=== PATIENT | female | born 1940 | race Caucasian/White ===

== ENCOUNTER 2022-02-03 17:24 | Inpatient (IN) ==
[2022-02-03] MEDS ORDERED: *HR* OxyCODONE Immed Rel 5 MG TABLET PO PRN (20:51)
[2022-02-03] MEDS ORDERED: Ondansetron ODT 4 MG TAB.RAPDIS SL PRN (20:51)
[2022-02-03] MEDS ORDERED: Acetaminophen 325 MG TABLET PO PRN (20:51)
[2022-02-03] MEDS ORDERED: Perflutren Lipid Microsphere 1.3 ML in 0.9 % Sodium Chloride 8.7 ML IVP PRN (20:51)
[2022-02-03] MEDS ORDERED: Naloxone 0.4 MG/ML INJ IVP PRN (20:51)
[2022-02-03] MEDS ORDERED: Gadolinium Contrast Agent (WT Based) IV PRN (20:51)
[2022-02-03] MEDS ORDERED: Melatonin 3 MG TABLET PO PRN (20:51)
[2022-02-03] MEDS: 0.9 % Sodium Chloride 1,000 ML IVC SCH (22:33)
[2022-02-04 00:50] LABS: INR 1.1; Prothrombin Time 11.9 Seconds (9.4-12.1)
[2022-02-04 01:08] LABS: Alanine Aminotransferase 10 Units/L (7-52); Albumin 3.8 g/dL (3.5-5.7); Albumin/Globulin Ratio 1.9 (1.1-2.2); Alkaline Phosphatase 54 Units/L (34-104); Aspartate Amino Transferase 17 Units/L (13-39); BUN/Creatinine Ratio 16 (6-26); Bilirubin,Total 0.8 mg/dL (0.3-1.0); Blood Urea Nitrogen 11 mg/dL (8-23); Calcium 9.2 mg/dL (8.6-10.3); Carbon Dioxide 30 mEq/L (23-29); Chloride 104 mEq/L (98-107); Chol/HDL Ratio 3.6 (0-4.9); Cholesterol 180 mg/dL (< 200); Glucose 100 mg/dL (70-105); HDL Cholesterol 50 mg/dL (40-59); LDL Cholesterol,Calculated 111 mg/dL (< 100); LDL Cholesterol,Direct 112 mg/dL (75-193); Osmolality,Calculated 291 (280-300); Potassium 4.1 mEq/L (3.5-5.1); Sodium 141 mEq/L (136-145); Total Protein 5.8 g/dL (6.4-8.9); Triglycerides 96 mg/dL (< 150); Troponin I < 0.03 ng/mL (< 0.04); eGFR For African Americans > 60 (> 60); eGFR For Non-African Americans > 60 (> 60)
[2022-02-04 01:20] LABS: Thyroid Stimulating Hormone 0.255 mcIU/mL (0.340-5.600)
[2022-02-04 01:29] LABS: Folate 12.1 ng/mL (3.0-16.0)
[2022-02-04 01:54] LABS: Bilirubin,Urine Negative (Negative); Blood,Urine Negative (Negative); Clarity,Urine Clear (Clear); Color,Urine Colorless (Yellow); Glucose,Urine (UA) Normal (Normal); Ketones,Urine Negative (Negative); Leukocyte Esterase,Urine Negative (Negative); Nitrite,Urine Negative (Negative); PH,Urine 6.5 pH Units (5.0-8.0); Protein,Urine Negative (Neg-Trace); Specific Gravity,Urine 1.012 (1.010-1.025); Urobilinogen,Urine Normal (Normal)
[2022-02-04 02:06] LABS: Amphetamine Screen,Urine Negative ng/mL (Cutoff=1000); Barbiturate Screen,Urine Negative ng/mL (Cutoff=200); Benzodiazepines Screen,Urine Negative ng/mL (Cutoff=200); Cannabinoid Screen,Urine Negative ng/mL (Cutoff = 50); Cocaine Screen,Urine Negative ng/mL (Cutoff= 300); Opiate Screen,Urine Negative ng/mL (Cutoff=300); Phencyclidine Screen,Urine Negative ng/mL (Cutoff=25)
[2022-02-04 02:24] LABS: Estimated Average Glucose 103 mg/dl; Hemoglobin A1C 5.2 %
[2022-02-04] MEDS ORDERED: Naloxone 0.4 MG/ML INJ IVP PRN (05:55)
[2022-02-04] MEDS: Aspirin Enteric Coated 81 MG Tablet PO SCH (09:46)
[2022-02-04] MEDS: *HR* HYDROcodone/Acet 5/325 mg TABLET PO PRN (15:53)
[2022-02-04] MEDS: 0.9 % Sodium Chloride 1,000 ML IVC SCH (18:14)
[2022-02-04] MEDS: risperiDONE 0.25 MG TABLET PO SCH (21:36)
[2022-02-05] MEDS: *HR* Enoxaparin 40 MG/0.4 ML SYRINGE SQ SCH (05:33)
[2022-02-05 06:29] LABS: Thyroid Stimulating Hormone 0.189 mcIU/mL (0.340-5.600)
[2022-02-05] MEDS: lisinopriL 20 MG TABLET PO SCH (08:18)
[2022-02-05] MEDS: *HR* HYDROcodone/Acet 5/325 mg TABLET PO PRN (08:19)
[2022-02-05] MEDS: Aspirin Enteric Coated 81 MG Tablet PO SCH (08:19)
[2022-02-05] MEDS: 0.9 % Sodium Chloride 1,000 ML IVC SCH (12:23)
[2022-02-05] MEDS: risperiDONE 0.25 MG TABLET PO SCH (19:58)
[2022-02-05] MEDS: ALPRAZolam 0.5 MG TABLET PO PRN (20:04)
[2022-02-06] MEDS: *HR* Enoxaparin 40 MG/0.4 ML SYRINGE SQ SCH (05:25)
[2022-02-06] MEDS: Aspirin Enteric Coated 81 MG Tablet PO SCH (09:10)
[2022-02-06] MEDS: *HR* HYDROcodone/Acet 5/325 mg TABLET PO PRN ×2 (09:10→20:23)
[2022-02-06] MEDS: lisinopriL 20 MG TABLET PO SCH (09:11)
[2022-02-06] MEDS: ALPRAZolam 0.5 MG TABLET PO PRN (10:01)
[2022-02-06] MEDS: 0.9 % Sodium Chloride 1,000 ML IVC SCH (10:37)
[2022-02-06] MEDS: risperiDONE 0.25 MG TABLET PO SCH (20:17)
[2022-02-07] MEDS: *HR* Enoxaparin 40 MG/0.4 ML SYRINGE SQ SCH (05:42)
[2022-02-07] MEDS: Aspirin Enteric Coated 81 MG Tablet PO SCH (09:18)
[2022-02-07] MEDS: *HR* HYDROcodone/Acet 5/325 mg TABLET PO PRN (09:18)
[2022-02-07] MEDS: lisinopriL 20 MG TABLET PO SCH (09:18)
[2022-02-07] MEDS: 0.9 % Sodium Chloride 1,000 ML IVC SCH (09:46)
[2022-02-07 16:58] LABS: Influenza A PCR Negative (Negative); Influenza B PCR Negative (Negative); Resp. Syncytial Virus PCR Negative (Negative)
[2022-02-07 17:48] LABS: SARS-CoV-2 by PCR (In House) Negative (Negative)
[2022-02-07] MEDS: risperiDONE 0.25 MG TABLET PO SCH (20:21)
[2022-02-07 20:48] VITALS: PULSE 58
[2022-02-07 23:58] VITALS: BP 89/55; TEMP 97.7; O2SAT 92
[2022-02-08] MEDS: 0.9 % Sodium Chloride 1,000 ML IVC SCH (01:17)
== END 2022-02-08 02:45 | disposition other institution (70) | DRG 885 ==
LOC: 3BNU → SUATTDRO 20:21
PROVIDERS: ADMIT Student in an Organized Health Care Education/Training Program; ATTEND Nurse Practitioner